=== PATIENT | female | born 1975 | race Two or more races ===

== ENCOUNTER 2025-02-08 22:38 | Inpatient (IN) | payer BC ==
[~2025-02-08] VITALS: Ht 162.6 cm; Wt 72.6 kg
[2025-02-08] MEDS ORDERED: PROPRANOLOL HCL10 MG PO (23:12)
--- NOTE | 2025-02-08 23:16 | NUR ---
SE RECIBE PACIENTE ALERTA Y CONCIENTE X 3. EL MISMO INDICA TENER DOLOR ABDOMINOPELVICO DESDE HACE 3 VILLALPANDO ATRAS. SE PROCEDE A SONA S/V AL PACIENTE Y SE UBICA EN CAMA 08 CON BARANDAS ELEVADAS Y NIVEL DE CAMA MAS BAJO.
[2025-02-08] MEDS ORDERED: FAMOtidine 10 MG/ML (4ML VIAL) IV ONE (23:30)
[2025-02-08] MEDS ORDERED: 0.9 % SODIUM CHLORIDE 1,000 ML IV ONE (23:30)
[2025-02-08] MEDS ORDERED: KETOROLAC TROMETHAMINE 30 MG VIAL IV ONE (23:30)
--- NOTE | 2025-02-09 00:01 | NUR ---
SE ORIENTA A PACIENTE SOBRE TRATAMIENTO MEDICO, REFIERE ENTENDER. SE REALIZAN MUESTRAS DE LABORATORIO BAJO MEDIDAS ASEPTICAS. SE ADMINISTRAN MEDICAMENTOS SONYA ORDEN MEDICA. SE COORDINA CT. PENDIENTE RE-EVALUACION MEDICA.
[2025-02-09 00:07] LABS: BASO % 0.3 % (0.1-1.2); EOS # 0.18 (0.04-0.54); EOS % 1.0 % (0.7-7.0); LYMPH # 4.95 (1.18-3.74); LYMPH % 28.8 % (19.3-53.1); MEAN PLATELET VOLUME 10.10 fl (9.4-12.4); MONO # 1.11 (0.24-0.82); MONO % 6.5 % (4.7-12.5); NEUT # 10.81 (1.56-6.13); NEUT % 63.0 % (34.0-71.1); RED CELL DISTRIBUTION WIDTH 14.4 % (11.6-14.4)
[2025-02-09 00:08] LABS: URINE APPEARANCE Cloudy; URINE BILIRRUBIN Negative (NEGATIVE); URINE BLOOD Negative; URINE COLOR Yellow; URINE GLUCOSE Negative (NEGATIVE); URINE KETONE Negative (NEGATIVE); URINE LEUKOCYTE Large; URINE NITRATE Negative; URINE PROTEIN Negative (NEGATIVE); URINE UROBILINOGEN 0.2 E.U./dl
[2025-02-09 00:11] LABS: URINE BACTERIA 5242.6 uL (0.0-1933); URINE EPITHELIAL CELLS 76.1 uL (0.0-38.8); URINE RBC 2.6 uL (0.0-20.8); URINE WBC 375.6 uL (0.0-23.2)
[2025-02-09 00:36] LABS: INR 1.03
[2025-02-09 00:43] LABS: ALT/SGPT 72.0 U/L (12-78); AST/SGOT 39.0 U/L (15-37); BILIRUBIN TOTAL 0.33 mg/dL (0.3-1.2); BUN CREA RATIO 16.0 (7.0-25.0); CREATININE SERUM 0.62 mg/dL (0.55-1.02); GFR 102.31; GLOBULINA 3.9 G/DL (2.4-3.5); GLUCOSE FASTING 100.0 mg/dL (65-100); HCG QUANTITATIVE 2.0 mUI/mL (1-3); OSMOLALITY SERUM 282.0 MOSM/KG (275-295)
[2025-02-09 01:15] LABS: URINE CAST 0.14 uL (0.0-1.40)
[2025-02-09] MEDS ORDERED: CIPROFLOXACIN IN 5 % DEXTROSE 200 ML IV SCH (03:42)
[2025-02-09] MEDS ORDERED: PIPERACILLIN/TAZOBACTAM SODIUM 3.375 GM in 0.9 % SODIUM CHLORIDE 100 ML IV SCH (08:00)
[2025-02-09] MEDS ORDERED: 0.9 % SODIUM CHLORIDE 1,000 ML IV SCH (08:00)
[2025-02-09] MEDS ORDERED: KETOROLAC TROMETHAMINE 30 MG VIAL IM PRN (08:00)
[2025-02-09] MEDS ORDERED: ONDANSETRON HCL 4 MG in 0.9 % SODIUM CHLORIDE 50 ML IV PRN (08:00)
[2025-02-09 10:00] VITALS: BP 154/78
[2025-02-09] MEDS ORDERED: ENALAPRILAT DIHYDRATE 1.25 MG/ML VIAL IV PRN (13:15)
[2025-02-09 19:03] VITALS: BP 163/83; O2SAT 97
[2025-02-10 02:28] VITALS: BP 119/69; O2SAT 97
[2025-02-10 07:00] VITALS: BP 153/83; O2SAT 98
[2025-02-10 08:19] LABS: BASO % 0.6 % (0.1-1.2); EOS # 0.19 (0.04-0.54); EOS % 1.8 % (0.7-7.0); LYMPH # 3.77 (1.18-3.74); LYMPH % 36.4 % (19.3-53.1); MEAN PLATELET VOLUME 10.00 fl (9.4-12.4); MONO # 0.57 (0.24-0.82); MONO % 5.5 % (4.7-12.5); NEUT # 5.74 (1.56-6.13); NEUT % 55.5 % (34.0-71.1); RED CELL DISTRIBUTION WIDTH 13.6 % (11.6-14.4)
[2025-02-10 08:52] LABS: ALT/SGPT 57.0 U/L (12-78); AST/SGOT 25.0 U/L (15-37); BILIRUBIN TOTAL 0.45 mg/dL (0.3-1.2); BUN CREA RATIO 16.0 (7.0-25.0); CREATININE SERUM 0.58 mg/dL (0.55-1.02); GFR 110.04; GLOBULINA 3.7 G/DL (2.4-3.5); GLUCOSE FASTING 76.0 mg/dL (65-100); OSMOLALITY SERUM 277.0 MOSM/KG (275-295)
== END 2025-02-10 13:35 | disposition home or self-care (01) | DRG 392 ==
LOC: ER 23:38 → SEC-K 02-09 09:53 → SURH 02-09 11:05
PROVIDERS: General Practice; Internal Medicine; ADMIT Internal Medicine; ATTEND Internal Medicine
PROC: BW21YZZ Computerized Tomography (CT Scan) of Abdomen and Pelvis using Other Contrast (ICD-10-PCS; principal; 2025-02-09)
DX: K57.92 Diverticulitis of intestine, part unspecified, without perforation or abscess without bleeding (principal); R10.32 Left lower quadrant pain